=== PATIENT | female | born 1950 | race Caucasian/White ===

== ENCOUNTER 2018-11-02 15:58 | Emergency (ER) | payer MEDICARE ==
[2018-11-02 16:51] VITALS: BP 143/74
--- NOTE | 2018-11-02 17:52 | UC ---
Respiratory Complaint HPI - History of Current Complaint Chief Complaint: UCRespiratory Stated Complaint: CONGESTION,COUGH Time Seen by Provider: 11/02/18 17:23 Hx Obtained From: Patient, Family/Market Intelligence Consultant Pain Intensity: 2 Pain Scale Used: 0-10 Numeric - Allergies/Home Medications Allergies/Adverse Reactions: Allergies Allergy/AdvReac Type Severity Reaction Status Date / Time No Known Allergies Allergy Verified 11/02/18 16:40 Home Medications: Home Medications Allopurinol TAB* [Zyloprim 300 MG TAB*] 300 mg PO DAILY 11/02/18 [History Confirmed 11/02/18] Astragalus Root 1 tab PO BID 11/02/18 [History Confirmed 11/02/18] Berberine 1 tab PO BID 11/02/18 [History Confirmed 11/02/18] Blood Pressure X 1 tab PO BID 11/02/18 [History Confirmed 11/02/18] Blood Stimulator Tcm 1 tab PO BID 11/02/18 [History Confirmed 11/02/18] Bosutinib [Bosulif] 200 mg PO DAILY 11/02/18 [History Confirmed 11/02/18] Cholecalciferol (Vitamin D3) [Vitamin D3] 1,000 unit PO DAILY 11/02/18 [History Confirmed 11/02/18] Cordyseps 1 tab PO BID 11/02/18 [History Confirmed 11/02/18] Doxazosin TAB* [Cardura TAB*] 4 mg PO BEDTIME 11/02/18 [History Confirmed ] Essiac Tea 1 tab PO BID 11/02/18 [History Confirmed 11/02/18] Furosemide TAB* [Lasix TAB*] 80 mg PO DAILY 11/02/18 [History Confirmed 11/02/18 ] Hsn-W 2 tab PO BID 11/02/18 [History Confirmed 11/02/18] Levothyroxine TAB* [Synthroid TAB*] 137 mcg PO 0800 11/02/18 [History Confirmed 11/02/18] Lysine HCl [l-Lysine] 1 tab PO BID 11/02/18 [History Confirmed 11/02/18] Metoprolol Succinate XL TAB* [Toprol XL TAB*] 50 mg PO DAILY 11/02/18 [History Confirmed 11/02/18] Milk Thistle 1 tab PO BID 11/02/18 [History Confirmed 11/02/18] Ondansetron TAB* [Zofran 4 MG Tab*] 4 mg PO Q6H PRN 11/02/18 [History Confirmed 11/02/18] [place] Cell Rc6 1 tab PO BID 11/02/18 [History Confirmed 11/02/18] Potassium Chlor TAB* [Klor Con ER TAB*] 10 meq PO DAILY 11/02/18 [History Confirmed 11/02/18] Red Yeast Rice Extract 1 tab PO BID 11/02/18 [History Confirmed 11/02/18] Turmeric [Curcumin] 1 tab PO BID 11/02/18 [History Confirmed 11/02/18] Varigone 1 tab PO BID 11/02/18 [History Confirmed 11/02/18] Vs-C Tcm 1 tab PO BID 11/02/18 [History Confirmed 11/02/18] PMH/Surg Hx/FS Hx/Imm Hx - Additional Past Medical History 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 Previously Healthy: Yes - Surgical History Surgical History: Yes Surgery Procedure, Year, and Place: THYROIDECTOMY. COLONOSCOPY WITH POLOPECTOMY -MULTIPUL. LEFT KNEE - Social History Alcohol Use: Weekly Substance Use Type: None Smoking Status (MU): Never Smoked Tobacco Review of Systems All Other Systems Reviewed And Are Negative: Yes Constitutional: Positive: Chills. Negative: Fever ENT: Positive: Sinus Congestion. Negative: Sore Throat, Nasal Discharge Respiratory: Positive: Cough. Negative: Shortness Of Breath Cardiovascular: Positive: Negative Musculoskeletal: Positive: Myalgia Neurological: Negative: Headache Physical Exam Triage Information Reviewed: Yes Appearance: Well-Appearing Vital Signs: Initial Vital Signs Temp 97.8 F 11/02/18 16:41 Pulse 57 11/02/18 16:41 Resp 16 11/02/18 16:41 BP 143/74 11/02/18 16:41 Pulse Ox 97 11/02/18 16:41 Vital Signs Reviewed: Yes ENT: Positive: Pharynx normal, TMs normal, Uvula midline Neck: Positive: Supple, Nontender, No Lymphadenopathy. Negative: Nuchal Rigidity Respiratory Exam: Normal Respiratory: Positive: Lungs clear Cardiovascular Exam: Normal Neurological: Positive: Alert Skin: Negative: Rashes Respiratory Course/Dx - Course Course Of Treatment: pt is currently under chemo tx for CML and developed cough, aches/chills 4-5 days ago. is sick contact. rapid flu was neg. will tx her cough. vitals good. on exam lungs clear. swelling of legs are chronic per pt. no resp. distress. - Differential Dx/Diagnosis Differential Diagnosis/HQI/PQRI: Asthma, Bronchitis, Lower Resp Infection Provider Diagnosis: Bronchitis Discharge - Sign-Out/Discharge Documenting (check all that apply): Patient Departure All imaging exams completed and their final reports reviewed: No Studies - Discharge Plan Condition: Good Disposition: HOME Prescriptions: Acetaminoph/Cod 120/12 mg LIQ* [Tylenol/Codeine 120/12 LIQ*] 10 ml PO BEDTIME PRN 3 Days #30 ml MDD 10mL PRN Reason: Cough predniSONE [Prednisone 20 MG TAB] 20 mg PO DAILY 3 Days #3 tablet Patient Education Materials: Acute Bronchitis (ED) Referrals: Bobby Andrews MD [Primary Care Provider] - Additional Instructions: If not improving please follow up with your main doctor. Let your ONcologist know on your follow up appt in November that you recently were ill and bring in this paper work. - Billing Disposition and Condition Condition: GOOD Disposition: Home
[2018-11-02 17:57] LABS: Influenza A Molecular NEGATIVE (Negative); Influenza B Molecular NEGATIVE (Negative)
== END 2018-11-02 18:17 | disposition home or self-care (01) ==
LOC: UCCORT 15:58
DX: J40 Bronchitis, not specified as acute or chronic (principal)
CPT/HCPCS: 99212; G0463